=== PATIENT | male | born 1985 | race Caucasian/White ===

== ENCOUNTER 2017-10-12 13:00 | Emergency (ER) | payer OTHER ==
[~2017-10-12] VITALS: Ht 182.9 cm; Wt 127.2 kg
[~2017-10-12 13:00] MED LIST: DOXYCYCLINE HY100 MG PO; FLEXERIL10 MG PO; HYDROCHLOROTHIA25 MG PO; LORTAB 5-325 M1 EACH PO; MUSCLE RELAXER; NAPROSYN500 MG PO; NAPROXEN500 MG PO; NOHOMEMEDS; PERCOCET 5/31 TABLET PO; POTASSIUM GLUCO99 M1 PO; STOOL SOFTENER100 M1 PO; ZOCOR10 MG PO
[2017-10-12 14:15] LABS: HEMATOCRIT 42.5 % (38.0-50.0); MCH 29.2 PG (29.0-34.0); MCHC 33.9 G/DL (30.0-36.0); MCV 86.2 FL (86-99); MEAN PLAT.VOLUME 10.5 uM^3 (9.0-12.4); PLATELET COUNT 290 K/uL (156-360); RED BLOOD COUNT 4.93 M/uL (4.00-5.50); WHITE BLOOD COUNT 6.4 K/uL (4.1-10.2)
[2017-10-12 14:25] LABS: CHLORIDE 102 mEq/L (99-109); POTASSIUM 3.9 mEq/L (3.7-5.4); SODIUM 139 mEq/L (136-147)
[2017-10-12 14:26] LABS: GLUCOSE 124 mg/dL (70-99)
[2017-10-12 14:28] LABS: ANION GAP 12 MEQ/L (2-14)
[2017-10-12 14:30] LABS: GFR ESTIMATE (CALCULATED) > 59 mL/min/ (58.99-99999)
[2017-10-12 14:31] LABS: UREA NITROGEN (BUN) 14 mg/dL (9-23)
[2017-10-12 14:36] LABS: TROP-I INTERPRETATION NEGATIVE; TROPONIN-I < 0.01 ng/mL (0.0-0.30)
[2017-10-12] MEDS ORDERED: MOTRIN600 MG PO (15:11)
[2017-10-12 15:42] VITALS: BP 159/101
== END 2017-10-12 15:43 | disposition home or self-care (01) ==
LOC: EME 13:00
DX: R07.89 Other chest pain (principal)
CPT/HCPCS: 71020; 80048; 84484; 85027; 93005